=== PATIENT | male | born 1955 | race Caucasian/White ===

== ENCOUNTER 2017-02-26 10:14 | Emergency (ER) | payer OTHER ==
[~2017-02-26] VITALS: Ht 175.3 cm; Wt 96.0 kg
[~2017-02-26 10:14] MED LIST: ALLO300T2 PO; AMLO5TAB96 PO; FLOV44AE IN; MECL25CH PO; ZOFR4TAB3 SL
[2017-02-26 10:16] VITALS: BP 132/78; PULSE 84; RESP 20; TEMP 98.9; O2SAT 96
[2017-02-26] MEDS ORDERED: ALLO300T2 PO (10:43)
[2017-02-26] MEDS ORDERED: FLUTI44I INH (10:44)
[2017-02-26] MEDS ORDERED: SODIUM CHLOR 0.9% 1000 ML INJ 1,000 ML IV SCH (11:06)
[2017-02-26 11:12] VITALS: RESP 16; O2SAT 99
[2017-02-26] MEDS: SODIUM CHLORIDE 0.9% FLUSH 10 ML FLUSH IV FLUSH PRN ×2 (11:15→12:15)
--- NOTE | 2017-02-26 11:15 | PD ---
HPI Chief Complaint: Abdominal Pain Time Seen by Provider: 11:06 Travel History International Travel<30 days: No Contact w/Intl Traveler<30days: No Traveled to known affect area: No History of Present Illness HPI This is a 61-year-old gentleman with no significant past medical history, who presents today with complaints of abdominal pain 2 days. This patient was seen by his primary care doctor today and he was sent here for a CT scan to rule out appendicitis. The patient has a history of diverticuli. He has never had diverticulitis. He denies any vomiting but does state he has nausea. He also states he had a low-grade fever yesterday. He reports the sensation of wanting to have a bowel movement however he cannot have one. He states that he gave himself 3 enemas this morning thinking he was blocked up with no results. No urinary symptoms. PFSH Past Medical History Cardiovascular Problems: Yes Diminished Hearing: No Gout: Yes Hypertension: Yes Musculoskeletal: Yes (gout) Tetanus Vaccination: > 5 Years Influenza Vaccination: Yes Past Surgical History Surgical History: No Previous Surgery Social History Alcohol Use: Yes (rare) Tobacco Use: No Substance Use: No Allergies-Medications (Allergen,Severity, Reaction): Coded Allergies: Stadol (Verified Allergy, Intermediate, itching, 02/26/17) Toradol (Verified Allergy, Intermediate, rash, 02/26/17) Opiate Agonists (Narcotics) (Verified Adverse Reaction, Severe, EXTREMELY SENSITIVE TO EFFECTS, 02/26/17) Reported Meds & Prescriptions Reported Meds & Active Scripts Active Reported Flovent Hfa 10.6 GM Inh (Fluticasone Propionate) 44 Mcg/Act Inh 2 Puff INH BID Use daily at the same time. Allopurinol 300 Mg Tab 300 Mg PO DAILY Review of Systems Except as stated in HPI: all other systems reviewed are Neg General / Constitutional: Positive: Fever, No: Chills (low-grade) HENT: No: Headaches, Vertigo Cardiovascular: No: Chest Pain or Discomfort, Palpitations Respiratory: No: Cough, Shortness of Breath Gastrointestinal: Positive: Nausea, Abdominal Pain (lower abdominal), No: Vomiting Genitourinary: No: Frequency, Dysuria Musculoskeletal: No: Weakness, Pain Neurologic: No: Weakness, Headache Physical Exam Narrative GENERAL: Well developed well-nourished male in no acute rest her distress. SKIN: Focused skin assessment warm/dry. HEAD: Atraumatic. Normocephalic. EYES: No scleral icterus. No injection or drainage. ENT: No nasal bleeding or discharge. Mucous membranes pink and moist. NECK: Trachea midline. Supple. CARDIOVASCULAR: Regular rate and rhythm. No murmur appreciated. RESPIRATORY: No accessory muscle use. Clear to auscultation. Breath sounds equal bilaterally. GASTROINTESTINAL: Abdomen soft, nondistended. He has bilateral lower quadrant tenderness with voluntary guarding. There is no rebound. MUSCULOSKELETAL: No obvious deformities. No clubbing. No cyanosis. No edema. NEUROLOGICAL: Awake and alert. No obvious cranial nerve deficits. Motor grossly within normal limits. Normal speech. PSYCHIATRIC: Appropriate mood and affect; insight and judgment normal. Data Data Last Documented VS Vital Signs Date Time Temp Pulse Resp B/P Pulse Ox O2 Delivery O2 Flow Rate FiO2 02/26/17 11:12 16 99 Room Air 02/26/17 10:16 98.9 84 132/78 Orders Complete Blood Count With Diff (02/26/17 11:06) Comprehensive Metabolic Panel (02/26/17 11:06) Lipase (02/26/17 11:06) Urinalysis - C+S If Indicated (02/26/17 11:06) Ct Abd/Pel W Iv Contrast(Rout) (02/26/17 11:06) Iv Access Insert/Monitor (02/26/17 11:06) Ecg Monitoring (02/26/17 11:06) Oximetry (02/26/17 11:06) Sodium Chlor 0.9% 1000 Ml Inj (Ns 1000 M (02/26/17 11:06) Sodium Chloride 0.9% Flush (Ns Flush) (02/26/17 11:15) Oral Contrast - Adult (02/26/17 11:18) Iohexol 350 Inj (Omnipaque 350 Inj) (02/26/17 12:25) Labs Laboratory Tests Test 02/26/17 02/26/17 11:20 11:50 White Blood Count 11.3 TH/MM3 Red Blood Count 4.93 MIL/MM3 Hemoglobin 15.0 GM/DL Hematocrit 44.6 % Mean Corpuscular Volume 90.4 FL Mean Corpuscular Hemoglobin 30.3 PG Mean Corpuscular Hemoglobin 33.6 % Concent Red Cell Distribution Width 13.9 % Platelet Count 120 TH/MM3 Mean Platelet Volume 8.2 FL Neutrophils (%) (Auto) 77.9 % Lymphocytes (%) (Auto) 10.5 % Monocytes (%) (Auto) 10.9 % Eosinophils (%) (Auto) 0.3 % Basophils (%) (Auto) 0.4 % Neutrophils # (Auto) 8.8 TH/MM3 Lymphocytes # (Auto) 1.2 TH/MM3 Monocytes # (Auto) 1.2 TH/MM3 Eosinophils # (Auto) 0.0 TH/MM3 Basophils # (Auto) 0.0 TH/MM3 CBC Comment DIFF FINAL Differential Comment Sodium Level 137 MEQ/L Potassium Level 4.0 MEQ/L Chloride Level 99 MEQ/L Carbon Dioxide Level 31.6 MEQ/L Anion Gap 6 MEQ/L Blood Urea Nitrogen 11 MG/DL Creatinine 0.96 MG/DL Estimat Glomerular Filtration 79 ML/MIN Rate Random Glucose 102 MG/DL Calcium Level 9.6 MG/DL Total Bilirubin 2.5 MG/DL Aspartate Amino Transf 20 U/L (AST/SGOT) Alanine Aminotransferase 28 U/L (ALT/SGPT) Alkaline Phosphatase 66 U/L Total Protein 7.8 GM/DL Albumin 3.7 GM/DL Lipase 153 U/L Urine Color LIGHT-YELLOW Urine Turbidity CLEAR Urine pH 7.0 Urine Specific [place] 1.004 Urine Protein NEG mg/dL Urine Glucose (UA) NEG mg/dL Urine Ketones NEG mg/dL Urine Occult Blood NEG Urine Nitrite NEG Urine Bilirubin NEG Urine Urobilinogen LESS THAN 2.0 MG/DL Urine Leukocyte Esterase NEG Urine WBC LESS THAN 1 /hpf Microscopic Urinalysis Comment CULT NOT INDICATED MDM Medical Decision Making Medical Screen Exam Complete: Yes Emergency Medical Condition: Yes Differential Diagnosis Diverticulitis versus appendicitis versus UTI. Narrative Course 51-year-old male who presents from his doctor's office for evaluation of abdominal pain. The patient has a history of diverticuli. He's never had diverticulitis. CT scan shows diverticulitis with out abscess. I discussed the findings with the patient. We'll start him on Flagyl and Cipro. He's been instructed to stand a son and avoid alcohol taking the medications. He'll also be given a prescription for Lortab total number of 20. He can take as needed. He is instructed to increase his fiber diet. Also increase his fluid and avoid straining of her bowel movements. Diagnosis Primary Impression: Diverticulitis Additional Impression: nonobstructed renal calculi. Additional Instructions: Drink plenty of fluids. Do not strain of her bowel movements. Increase fiber in your diet. Follow up with primary care physician. Med/Other Pt SpecificInfo: Prescription(s) given Scripts Hydrocodone-Acetaminophen (Lortab)5-325 Mg Tab1 Tab PO Q6H PRN (PAIN) #20 TAB Ref 0 Prov:Bruno Ernandez MD 02/26/17 Ciprofloxacin (Cipro)500 Mg [id number] Mg PO BID #20 TAB Ref 0 Prov:Bruno Ernandez MD 02/26/17 Metronidazole (Flagyl)500 Mg [id number] Mg PO TID #30 TAB Ref 0 Prov:Bruno Ernandez MD 02/26/17 Disposition: 01 DISCHARGE HOME Condition: Stable Bruno Ernandez MD Feb 26, 2017 11:15
[2017-02-26 11:27] LABS: AUTOMATED NEUTROPHIL # 8.8 TH/MM3 (1.8-7.7); BASOPHIL % 0.4 % (0.0-2.0); EOSINOPHIL % 0.3 % (0.0-4.0); HEMATOCRIT 44.6 % (39.0-51.0); HEMO FLAGS DIFF FINAL; LYMPH % 10.5 % (9.0-44.0); LYMPHOCYTE # 1.2 TH/MM3 (1.0-4.8); MEAN CELL VOLUME 90.4 FL (80.0-100.0); MEAN CORPUSCULAR HEMOGLOBIN 30.3 PG (27.0-34.0); MEAN CORPUSCULAR HGB CONC 33.6 % (32.0-36.0); MONO % 10.9 % (0.0-8.0); NEUT % 77.9 % (16.0-70.0); PLATELET COUNT 120 TH/MM3 (150-450); RED BLOOD COUNT 4.93 MIL/MM3 (4.50-5.90); RED CELL DISTRIBUTION WIDTH 13.9 % (11.6-17.2); WHITE BLOOD COUNT 11.3 TH/MM3 (4.0-11.0)
[2017-02-26 11:52] LABS: ALT (GPT) 28 U/L (12-78); ANION GAP 6 MEQ/L (5-15); AST (GOT) 20 U/L (15-37); BICARBONATE 31.6 MEQ/L (21.0-32.0); BLOOD UREA NITROGEN 11 MG/DL (7-18); CHLORIDE 99 MEQ/L (98-107); GLOMERULAR FILTRATION RATE 79 ML/MIN (>89); SODIUM (NA) 137 MEQ/L (136-145)
[2017-02-26 11:53] LABS: ALKALINE PHOSPHATASE 66 U/L (45-117); TOTAL BILIRUBIN ADULT 2.5 MG/DL (0.2-1.0)
[2017-02-26 12:10] LABS: BLOOD, URINE NEG (NEG); GLUCOSE,URINE NEG (NEG); KETONE, URINE NEG (NEG); NITRITE,URINE NEG (NEG); URINE COLOR LIGHT-YELLOW (YELLW/STRAW)
[2017-02-26 12:13] LABS: COMMENT (UR) CULT NOT INDICATED; CULTURE IF INDICATED CULT NOT INDICATED
[2017-02-26] MEDS ORDERED: IOHEXOL 350 MG/ML 10 ML VIAL (for RAD DIAG) IV ONE (12:25)
--- NOTE | 2017-02-26 12:39 | RADRPT ---
EXAM DATE/TIME: 02/26/2017 12:19 [facility] COMPARISON: CT BRAIN W/O CONTRAST, August 21, 2015, 8:44. INDICATIONS : Right lower quadrant pain. IV CONTRAST: 100 cc Omnipaque 350 (iohexol) IV ORAL CONTRAST: Prescribed oral contrast ingested. RADIATION DOSE: 9.96 CTDIvol (mGy) MEDICAL HISTORY : Hypertension. Cardiovascular disease SURGICAL HISTORY : None. ENCOUNTER: Initial ACUITY: 1 day PAIN SCALE: 5/10 LOCATION: Right lower quadrant TECHNIQUE: Volumetric scanning of the abdomen and pelvis was performed. Using automated exposure control and ad justment of the mA and/or kV according to patient size, radiation dose was kept as low as reasonably achievable to obtain optimal diagnostic quality images. FINDINGS: The limited portion of the lung base visualized is clear. The appearance of the liver, spleen, pancreas and adrenal glands is within normal limits. There is a 2 mm nonobstructing stone seen within the collecting system of the left kidney. The right kidney is u nremarkable in appearance. Note is made of a 1.4 cm simple cyst on the left as well. The abdominal aorta is normal in caliber. There is no retroperitoneal adenopathy. No free air or free fluid is present. The visualized loops of small and large bowel are unremarkable. Imaging through the pelvis demonstrates an area of inflamed, thickened sigmoid colon with scattered d iverticuli. Findings would be consistent with acute diverticulitis. No focal drainable abscess is see n. No free air is identified. Note is made of calcifications within the prostate. There are degenerative changes throughout the spine. CONCLUSION: 1. There is a large area of inflammatory change within the left lower quadrant surrounding a portion of the sigmoid colon. There are scattered diverticuli. Findings are most consistent with acute divert iculitis. No abscess or free air identified. 2. 2 mm nonobstructing stone in the collecting system of the left kidney. Mode Be MD on February 26, 2017 at 12:34 Board Certified Radiologist. This report was verified electronically.
[2017-02-26] MEDS ORDERED: METR-1 PO (13:00)
[2017-02-26] MEDS ORDERED: CIPR-9 PO (13:00)
[2017-02-26] MEDS ORDERED: HYDR-3533 PO (13:00)
[2017-02-26 13:15] VITALS: BP 110/78; TEMP 97.8
== END 2017-02-26 13:15 | disposition home or self-care (01) ==
LOC: NEPE 10:14
DX: K57.92 Diverticulitis of intestine, part unspecified, without perforation or abscess without bleeding (principal); N20.0 Calculus of kidney; I10 Essential (primary) hypertension
CPT/HCPCS: 74177; 80053; 81001; 83690; 85025; 96360; 99285; J7030; Q9967

== ENCOUNTER 2018-02-21 05:47 | Emergency (ER) | payer OTHER ==
[~2018-02-21 05:47] MED LIST changes: -AMLO5TAB96 PO; +CIPR-9 PO; -FLOV44AE IN; +FLUTI44I INH; +HYDR-3533 PO; -MECL25CH PO; +METR-1 PO; -ZOFR4TAB3 SL
[2018-02-21 05:48] VITALS: BP 225/116; PULSE 78; RESP 23; TEMP 97.4; O2SAT 98
[2018-02-21 05:57] VITALS: BP 144/83; PULSE 69; RESP 20; O2SAT 99
[2018-02-21] MEDS ORDERED: SODIUM CHLOR 0.9% 1000 ML INJ 1,000 ML IV ONE (06:05)
--- NOTE | 2018-02-21 06:12 | PD ---
HPI Chief Complaint: Flank/Kidney Pain Time Seen by Provider: 06:05 Travel History International Travel<30 days: No Contact w/Intl Traveler<30days: No Traveled to known affect area: No History of Present Illness HPI 62-year-old male presents to the emergency department by private transportation for complaint of sudden onset left lower quadrant abdominal pain at 1 AM. Symptoms associated with nausea and diaphoresis. Patient denies vomiting. Patient has history of kidney stones and diverticulitis. No report of fever or chills. Patient's had urinary frequency and urgency without hematuria. Patient denies any injury or fall. Patient does not report any change in bowel movements. No blood in stools. Patient is unable to identify exacerbating or alleviating factors. Pain is 9-10/10 intensity. PFSH Past Medical History Narrative Medical Gouty arthritis hypertension kidney stones diverticulosis diverticulitis rare alcohol use; nursing notes reviewed Cardiovascular Problems: Yes Diminished Hearing: No Gout: Yes Hypertension: Yes Musculoskeletal: Yes (gout) Social History Alcohol Use: Yes (rare) Tobacco Use: No Substance Use: No Allergies-Medications (Allergen,Severity, Reaction): Coded Allergies: butorphanol (Unverified Allergy, Intermediate, itching, 02/21/18) ketorolac (Unverified Allergy, Intermediate, rash, 02/21/18) Opioids - Morphine Analogues (Unverified Adverse Reaction, Severe, EXTREMELY SENSITIVE TO EFFECTS, 02/21/18) Opioids-Meperidine and Related (Unverified Adverse Reaction, Severe, EXTREMELY SENSITIVE TO EFFECTS, 02/21/18) Opioids-Methadone and Related (Unverified Adverse Reaction, Severe, EXTREMELY SENSITIVE TO EFFECTS, 02/21/18) Reported Meds & Prescriptions Reported Meds & Active Scripts Active Review of Systems Except as stated in HPI: all other systems reviewed are Neg General / Constitutional: No: Fever, Chills HENT: No: Congestion Cardiovascular: No: Chest Pain or Discomfort Respiratory: No: Shortness of Breath Gastrointestinal: Positive: Nausea, Abdominal Pain, No: Vomiting, Diarrhea Genitourinary: Positive: Urgency, Frequency, No: Hematuria, Flank Pain Musculoskeletal: No: Myalgias, Arthralgias Skin: No Rash Neurologic: No: Weakness Psychiatric: No: Anxiety Endocrine: No: Polyuria Hematologic/Lymphatic: No: Lymph Node Enlargement Physical Exam Narrative GENERAL: Well-developed well-nourished male in obvious discomfort no respiratory distress SKIN: Warm and dry. HEAD: Normocephalic. EYES: No scleral icterus. No injection or drainage. NECK: Supple, trachea midline. No JVD or lymphadenopathy. CARDIOVASCULAR: Regular rate and rhythm without murmurs, gallops, or rubs. RESPIRATORY: Breath sounds equal bilaterally. No accessory muscle use. GASTROINTESTINAL: Abdomen soft, non-tender, nondistended. MUSCULOSKELETAL: No cyanosis, or edema. BACK: Nontender without obvious deformity. No CVA tenderness. Data Data Last Documented VS Vital Signs Date Time Temp Pulse Resp B/P (MAP) Pulse Ox O2 Delivery O2 Flow Rate FiO2 02/21/18 05:57 69 20 144/83 (103) 99 Room Air 02/21/18 05:48 97.4 Orders Orders Complete Blood Count With Diff (02/21/18 06:05) Basic Metabolic Panel (Bmp) (02/21/18 06:05) Urinalysis - C+S If Indicated (02/21/18 06:05) Ct Abd/Pel W/O Iv Contrast (02/21/18 06:05) Ecg Monitoring (02/21/18 06:05) Iv Access Insert/Monitor (02/21/18 06:05) Sodium Chloride 0.9% Flush (Ns Flush) (02/21/18 06:15) Sodium Chlor 0.9% 1000 Ml Inj (Ns 1000 M (02/21/18 06:05) Metoclopramide Inj (Reglan Inj) (02/21/18 06:15) Labs Laboratory Tests Test 02/21/18 06:05 White Blood Count 11.0 TH/MM3 Red Blood Count 4.98 MIL/MM3 Hemoglobin 15.8 GM/DL Hematocrit 44.9 % Mean Corpuscular Volume 90.2 FL Mean Corpuscular Hemoglobin 31.7 PG Mean Corpuscular Hemoglobin Concent 35.1 % Red Cell Distribution Width 13.2 % Platelet Count 139 TH/MM3 Mean Platelet Volume 8.6 FL Neutrophils (%) (Auto) 83.7 % Lymphocytes (%) (Auto) 8.7 % Monocytes (%) (Auto) 6.7 % Eosinophils (%) (Auto) 0.4 % Basophils (%) (Auto) 0.5 % Neutrophils # (Auto) 9.2 TH/MM3 Lymphocytes # (Auto) 1.0 TH/MM3 Monocytes # (Auto) 0.7 TH/MM3 Eosinophils # (Auto) 0.0 TH/MM3 Basophils # (Auto) 0.1 TH/MM3 CBC Comment DIFF FINAL Differential Comment Blood Urea Nitrogen 14 MG/DL Creatinine 1.06 MG/DL Random Glucose 154 MG/DL Calcium Level 9.4 MG/DL Sodium Level 140 MEQ/L Potassium Level 3.9 MEQ/L Chloride Level 105 MEQ/L Carbon Dioxide Level 23.1 MEQ/L Anion Gap 12 MEQ/L Estimat Glomerular Filtration Rate 70 ML/MIN MDM Medical Decision Making Medical Screen Exam Complete: Yes Emergency Medical Condition: Yes Medical Record Reviewed: Yes Interpretation(s) Last Impressions Abdomen/Pelvis CT 02/21/18604 Signed Impressions: CONCLUSION: 1. Recent left-sided obstructive uropathy with some residual hydronephrosis an d ureteral dilatation with perinephric stranding. An approximately 3 mm calculu s has passed into the bladder. No current renal or ureteral calculi identified. Small left renal cyst. CBC & BMP Diagram 02/21/18 06:05 Calcium Level 9.4 Vital Signs Date Time Temp Pulse Resp B/P (MAP) Pulse Ox O2 Delivery O2 Flow Rate FiO2 02/21/18 05:57 69 20 144/83 (103) 99 Room Air 02/21/18 05:48 97.4 78 23 225/116 (152) 98 Differential Diagnosis Abdominal pain, renal colic, obstructive uropathy, diverticulitis, atypical appendicitis, hernia, epididymoorchitis, UTI Narrative Course IV access obtained patient administered 1 L normal saline and Reglan 10 mg IV unable to administer any narcotic pain medication such as morphine demerol or methadone due to multiple allergies also unable to tolerate Toradol reportedly. Patient states opiates because his blood pressure to drop precipitously. Able to tolerate hydrocodone by mouth. At 6:52 AM patient is asymptomatic CT abdomen pelvis kidney stone protocol identifies patient with hydroureter and hydronephrosis residual consistent with recent passage of 3 mm stone identified in the bladder. Patient informed of CT results and lab results urinalysis remains pending Diagnosis Primary Impression: Renal colic on left side Additional Impression: Nephrolithiasis Referrals: Duran Rose MD call for appointment keep scheduled appointment Patient Instructions: General Instructions Additional Instructions: Strain urine Increase fluid hydration Follow-up with your urologist as scheduled Return to the emergency department for any concerns or change in condition Take as needed Zofran ODT 4 mg every 6 hours for nausea and/or vomiting take as needed Flomax 0.4 mg daily as prescribed and/or take hydrocodone 5/325 as needed for pain greater than 5/10 intensity otherwise take as tolerated ibuprofen/Advil/Motrin per package directions Follow-up with your primary care provider Med/Other Pt SpecificInfo: Prescription(s) given Scripts Tamsulosin (Flomax) 0.4 Mg Cap 0.4 MG PO HS for Manage Prostate Problems, #7 CAP 0 Refills Prov: Lisy Worthy MD 02/21/18 Hydrocodone-Acetaminophen ([place]) 5 Mg-325 Mg Tab 1 TAB PO Q6H Y for PAIN, #5 TAB 0 Refills Prov: Lisy Worthy MD 02/21/18 Ondansetron Odt (Zofran Odt) 4 Mg Tab 4 MG SL Q6HR Y for Nausea/Vomiting, #10 TAB 0 Refills Prov: Lisy Worthy MD 02/21/18 Disposition: 01 DISCHARGE HOME Condition: Stable Lisy Worthy MD Feb 21, 2018 06:12
[2018-02-21] MEDS ORDERED: SODIUM CHLORIDE 0.9% FLUSH 10 ML FLUSH IVF PRN (06:15)
[2018-02-21] MEDS ORDERED: METOCLOPRAMIDE HCL 10 MG/2 ML VIAL IV PUSH ONE (06:15)
[2018-02-21 06:24] LABS: AUTOMATED NEUTROPHIL # 9.2 TH/MM3 (1.8-7.7); BASOPHIL # 0.1 TH/MM3 (0-0.2); BASOPHIL % 0.5 % (0.0-2.0); EOSINOPHIL % 0.4 % (0.0-4.0); HEMATOCRIT 44.9 % (39.0-51.0); HEMOGLOBIN 15.8 GM/DL (13.0-17.0); LYMPH % 8.7 % (9.0-44.0); MEAN CELL VOLUME 90.2 FL (80.0-100.0); MEAN CORPUSCULAR HEMOGLOBIN 31.7 PG (27.0-34.0); MEAN CORPUSCULAR HGB CONC 35.1 % (32.0-36.0); MEAN PLATELET VOLUME 8.6 FL (7.0-11.0); MONO % 6.7 % (0.0-8.0); MONOCYTE # 0.7 TH/MM3 (0-0.9); NEUT % 83.7 % (16.0-70.0); PLATELET COUNT 139 TH/MM3 (150-450); RED BLOOD COUNT 4.98 MIL/MM3 (4.50-5.90); RED CELL DISTRIBUTION WIDTH 13.2 % (11.6-17.2)
--- NOTE | 2018-02-21 06:46 | RADRPT ---
EXAM DATE: 02/21/2018 6:31 AM EDT AGE/SEX: 62 years / Male INDICATIONS: Left flank pain. CLINICAL DATA: This is the patient's initial encounter. Patient reports that signs and symptoms have been present for 1 day and indicates a pain score of 10/10. MEDICAL/SURGICAL HISTORY: Hypertension. Renal calculi. None. RADIATION DOSE: 19.19 CTDI (mGy) [place] [facility] [place]AST, 09/16/2012. . TECHNIQUE: Multiple contiguous axial images were obtained through the abdomen. Images were obtained using multiple row detector helical technique. Using dose reduction techniques, radiation dose was ke pt as low as reasonably achievable to obtain optimal diagnostic quality images. FINDINGS: Lung bases are clear. No effusion. Mild fatty liver. Spleen, adrenals, right kidney and pancreas unremarkable. No gallstones or biliary ductal dilatation. There is mild left-sided hydronephrosis and perinephric stranding. 3 mm calculus is present in the bl adder on the right side. Prostatic calcifications noted. Grade 1 anterolisthesis L4 on L5 with degene rative change in the lower lumbar spine. CONCLUSION: 1. Recent left-sided obstructive uropathy with some residual hydronephrosis and ureteral dilatation with perinephric stranding. An approximately 3 mm calculus has passed into the bladder. No current re nal or ureteral calculi identified. Small left renal cyst. Electronically signed by: Alejo Tyson MD 02/21/2018 6:45 AM EDT
[2018-02-21 06:48] LABS: BICARBONATE 23.1 MEQ/L (21.0-32.0); CALCIUM 9.4 MG/DL (8.5-10.1); CREATININE 1.06 MG/DL (0.60-1.30)
[2018-02-21] MEDS ORDERED: ZOFR4TAB3 SL (06:55)
[2018-02-21] MEDS ORDERED: NORC5TAB PO (06:55)
[2018-02-21] MEDS ORDERED: TAMS5CAP PO (06:55)
[2018-02-21 07:05] VITALS: BP 132/79; PULSE 67; RESP 16; O2SAT 96
[2018-02-21 07:34] LABS: BILIRUBIN, URINE NEG (NEG); BLOOD, URINE MOD (NEG); GLUCOSE,URINE NEG (NEG); KETONE, URINE NEG (NEG); MUCUS URINE FEW /lpf (OCC); NITRITE,URINE NEG (NEG); PH, URINE 5.5 (5.0-8.5); URINE COLOR YELLOW (YELLW/STRAW); URINE LEUKOCYTE ESTERASE NEG (NEG)
== END 2018-02-21 08:23 | disposition home or self-care (01) ==
LOC: NEPC 05:47
DX: N23 Unspecified renal colic (principal); N20.0 Calculus of kidney; M10.9 Gout, unspecified; I10 Essential (primary) hypertension; Z87.19 Personal history of other diseases of the digestive system; Z87.442 Personal history of urinary calculi
CPT/HCPCS: 74176; 80048; 81001; 85025; 96374; 99284; J2765; J7030